=== PATIENT | female | born 1980 | race African-American/Black ===

== ENCOUNTER 2024-06-22 16:41 | Emergency (ER) | payer MEDICAID ==
[~2024-06-22] VITALS: Ht 165.1 cm; Wt 80.0 kg
[2024-06-22 16:47] VITALS: TEMP 36.6; O2SAT 98
[2024-06-22] MEDS ORDERED: P20 PO (18:46)
[2024-06-22 18:47] VITALS: BP 143/87; PULSE 86; RESP 16
[2024-06-22] MEDS: PREDNISONE 20MG TABLET PO STA (18:47)
[2024-06-22] MEDS: OXYCODONE HCL/ACETAMINOPHEN 5/325MG TABLET PO STA (18:47)
== END 2024-06-22 19:31 | disposition home or self-care (01) ==
LOC: ER 16:41
DX: G89.29 Other chronic pain (principal); M54.50 Low back pain, unspecified; J45.909 Unspecified asthma, uncomplicated; Z79.52 Long term (current) use of systemic steroids; Z88.6 Allergy status to analgesic agent
CPT/HCPCS: 99283; J7512

== ENCOUNTER 2024-07-10 07:32 | Emergency (ER) | payer MEDICAID ==
[~2024-07-10] VITALS: Ht 172.7 cm; Wt 100.0 kg
[~2024-07-10 07:32] MED LIST: P20 PO
[2024-07-10 07:37] VITALS: BP 178/113; PULSE 94; RESP 18; TEMP 36.6; O2SAT 98
== END 2024-07-10 09:33 | disposition left against medical advice (07) ==
LOC: ER 07:41
DX: R51.9 Headache, unspecified (principal); Z53.21 Procedure and treatment not carried out due to patient leaving prior to being seen by health care provider